=== PATIENT | female | born 1985 | race Caucasian/White ===

== ENCOUNTER 2017-10-27 08:13 | Emergency (ER) | payer OTHER ==
[~2017-10-27] VITALS: Ht 167.6 cm; Wt 68.0 kg
[~2017-10-27 08:13] MED LIST: DULO20CA
--- NOTE | 2017-10-27 08:20 | NUR ---
[facility] + [employer], PT WAS FOUND SITTING AT THE EDGE OF THE BRIDGE CLAIMING SI. ALCOHOL CONSUMPTION EARLY THIS AM AND TOOK VALIUM LAST NIGHT, DENIES HI. PATIENT IS A/OX 4, DEPRESSED. BREATHING EVEN AND UNLABORED. NO SOB, NAD. VITALS STABLE. SAFETY AND COMFORT MEASURES IN PLACE. AWAITING MD ORDERS.
[2017-10-27 09:14] LABS: BASOPHILS % (AUTO) 0.6 % (0.0-2.0); EOSINOPHILS # (AUTO) 0.1 /CMM (0.0-0.7); EOSINOPHILS % (AUTO) 1.5 % (0.0-6.0); HEMATOCRIT 34 % (33-45); HEMOGLOBIN 11.2 g/dL (11.5-14.8); LYMPHOCYTES # (AUTO) 2.1 /CMM (0.8-4.8); LYMPHOCYTES % (AUTO) 25.8 % (20.0-44.0); MEAN CORPUSCULAR HEMOGLOBIN 26 PG (26.0-33.0); MEAN CORPUSCULAR HGB CONC 34 g/dl (31.0-36.0); MEAN CORPUSCULAR VOLUME 79 fL (82-100); MONOCYTES # (AUTO) 0.5 /CMM (0.1-1.30); MONOCYTES % (AUTO) 6.2 % (2.0-12.0); NEUTROPHILS # (AUTO) 5.4 /CMM (1.8-8.9); NEUTROPHILS % (AUTO) 65.9 % (43.0-81.0); PLATELET COUNT (AUTO) 359 /CMM (150-450); RDW COEFFICIENT OF VARIATION 17.4 (11.5-15.0); RED BLOOD CELL COUNT(AUTO) 4.26 MIL/uL (4.0-5.2); WHITE BLOOD COUNT (AUTO) 8.2 K/uL (4.3-11.0)
[2017-10-27 09:28] LABS: CALCIUM, SERUM 8.4 mg/dL (8.5-10.1); CREATININE 0.9 mg/dL (0.6-1.3); POTASSIUM 3.6 mmol/L (3.5-5.1)
--- NOTE | 2017-10-27 09:29 | NUR ---
URINE OBTAINED AND SENT TO LAB
[2017-10-27 09:36] LABS: ALBUMIN 3.2 g/dL (3.4-5.0); BILIRUBIN,DIRECT 0.1 mg/dL (0.0-0.2); BILIRUBIN,TOTAL 0.3 mg/dL (0.2-1.0)
[2017-10-27 09:44] LABS: APPEARANCE,URINE Slightly Cloudy (CLEAR); BILIRUBIN,URINE Negative (NEGATIVE); BLOOD, URINE Negative Ery/uL (NEGATIVE); COLOR,URINE Yellow (YELLOW); KETONES,URINE Negative (NEGATIVE); LEUKOCYTE ESTERASE ,URINE Small (NEGATIVE); NITRITE, URINE Negative (NEGATIVE); PROTEIN,URINE Negative (NEGATIVE); UGLUCOSE Negative (NEGATIVE); UROBILINOGEN,URINE 0.2 EU/dL (0.2)
[2017-10-27 09:45] LABS: SALICYLATE 1.1 mg/dL (2.8-20.0)
[2017-10-27 09:50] LABS: BACTERIA,URINE Few /HPF (None Seen); RBC,URINE 0-2 /HPF (0-2); SQUAMOUS EPITHELIAL CELL,UR Many /HPF (None Seen)
--- NOTE | 2017-10-27 12:14 | NUR ---
CALLED ART DRY CLEANING TEACHER.
--- NOTE | 2017-10-27 14:55 | NUR ---
TECHNICAL WRITER ART AT BEDSIDE FOR EVAL.
--- NOTE | 2017-10-27 19:08 | NUR ---
REPORT GIVEN TO FAISAL PEACE FOR AMIE.
--- NOTE | 2017-10-27 19:26 | NUR ---
LAB AT BEDSIDE FOR BLOOD DRAW
--- NOTE | 2017-10-27 21:50 | NUR ---
BLOOD ALCOHOL LEVEL DECREASING. WAITING FOR CRISIS TEAM EVALUATION
--- NOTE | 2017-10-27 22:34 | NUR ---
SENIOR BRANCH MANAGER IS SUPPOSE TO BE HERE BY [id number].
[2017-10-27] MEDS ORDERED: ONDANSETRON 4 MG TAB.RAPDIS ONE (23:55)
[2017-10-27] MEDS ORDERED: ACETAMINOPHEN 325 MG TABLET ONE (23:56)
[2017-10-28 00:16] VITALS: BP 103/56
[2017-10-28] MEDS ORDERED: ONDANSETRON 4 MG TAB.RAPDIS SL ONE (00:30)
== END 2017-10-28 00:16 | disposition home or self-care (01) ==
LOC: ER 08:15
DX: R45.851 Suicidal ideations (principal); F10.129 Alcohol abuse with intoxication, unspecified; D50.9 Iron deficiency anemia, unspecified; F41.9 Anxiety disorder, unspecified; F32.9 Major depressive disorder, single episode, unspecified; E28.2 Polycystic ovarian syndrome
CPT/HCPCS: 36415; 80048-TC; 80076-TC; 80305; 81000-TC; 84703-TC; 85025-TC; A4606; G0480; Q0162; Z7610